=== PATIENT | male | born 1975 | race Caucasian/White ===

== ENCOUNTER 2023-03-16 10:13 | Day surgery (SDC) | payer BC ==
[~2023-03-16 10:13] MED LIST: Acetaminophen 1,000 MG in Premix Bag 1 BAG IV SCH; Albuterol 0.083% 2.5 MG/3 ML Neb Soln NEB PRN; HYDROmorphone 1 MG/ML Syringe IVPUSH PRN; Metoclopramide 10 MG/2 ML SDV IVPUSH PRN; Morphine 2 MG/ML SYRINGE IVPUSH PRN; Naloxone 0.4 MG/ML SDV IVPUSH PRN; Ondansetron 4 MG/2 ML SDV IVPUSH PRN; cefOXitin 2 GM in Sodium Chloride 0.9% 50 ML IV SCH; droPERidol 5 MG/2 ML SDV IVPUSH PRN; fentaNYL 50 MCG/ML SDV IVPUSH PRN
[2023-03-16] MEDS ORDERED: propofoL 50 ML ONE (10:40)
[2023-03-16] MEDS ORDERED: Morphine 10 MG/ML SDV ONE (10:41)
[2023-03-16] MEDS ORDERED: Dexamethasone 4 MG/ML 5 ML MDV ONE (10:41)
[2023-03-16] MEDS ORDERED: fentaNYL 100 MCG/2 ML SDV ONE ×2 (10:41→14:10)
[2023-03-16] MEDS ORDERED: Ropivacaine 0.5% 5 MG/ML 30 ML SDV ONE (10:44)
[2023-03-16] MEDS ORDERED: propofoL 100 ML ONE (10:45)
[2023-03-16] MEDS: Lactated Ringers 1,000 ML IV SCH (10:47)
[2023-03-16] MEDS: Pregabalin 75 MG Cap PO SCH (10:48)
[2023-03-16] MEDS ORDERED: cefOXitin 1 GM Vial ONE ×2 (10:57)
[2023-03-16] MEDS ORDERED: Scopalamine 1mg/3day Transdermal Patch ONE (11:01)
[2023-03-16] MEDS ORDERED: Bupivacaine 0.5% 30 ML SDV ONE (11:03)
[2023-03-16] MEDS ORDERED: Sugammadex Sodium 200 MG/2 ML VIAL ONE (13:14)
[2023-03-16] MEDS ORDERED: Ketorolac 30 MG/ML SDV ONE (13:14)
[2023-03-16] MEDS ORDERED: Ondansetron 4 MG/2 ML SDV ONE ×2 (13:14)
[2023-03-16] MEDS ORDERED: Lidocaine 2% 5 ML SDV ONE ×2 (13:15)
[2023-03-16] MEDS ORDERED: Rocuronium Bromide 50 MG/5 ML Syringe ONE ×2 (13:16→13:17)
== END 2023-03-16 15:38 | disposition home or self-care (01) ==
LOC: MERGE 10:13 → MW.SDS 10:13
PROVIDERS: ATTEND Surgery
DX: K40.90 Unilateral inguinal hernia, without obstruction or gangrene, not specified as recurrent (principal); K42.9 Umbilical hernia without obstruction or gangrene; D17.6 Benign lipomatous neoplasm of spermatic cord; D12.6 Benign neoplasm of colon, unspecified; K63.5 Polyp of colon; K64.8 Other hemorrhoids; I10 Essential (primary) hypertension; F17.210 Nicotine dependence, cigarettes, uncomplicated; Z79.899 Other long term (current) drug therapy
CPT/HCPCS: 49591; 49650; 64486; A9270; J0131; J0665; J0694; J1100; J1885; J2270; J2405; J2704; J2795; J3010; J3490; J7120; 00830; 64488; C1781